=== PATIENT | female | born 1945 | race Hispanic/Latino ===

== ENCOUNTER 2025-07-22 06:56 | Day surgery (SDC) | payer OTHER ==
[2025-07-22] VITALS (10 sets, daily range): BP systolic 110–145; BP diastolic 54–80; PULSE 61–76; RESP 14–18; TEMP 97.4–97.9
[~2025-07-22] VITALS: Ht 167.6 cm; Wt 66.2 kg
[~2025-07-22 06:56] MED LIST: 0.9%NACL 1000ML 1,000 ML IV ONE
[2025-07-22] MEDS ORDERED: CHOL100046 PO (07:50)
[2025-07-22] MEDS ORDERED: CLOP75TA32 PO (07:50)
[2025-07-22] MEDS ORDERED: SIMV-46 PO (07:50)
[2025-07-22] MEDS ORDERED: METF-444 PO (07:50)
[2025-07-22] MEDS ORDERED: EZET10TA48 PO (07:50)
[2025-07-22] MEDS ORDERED: TAMS-55 PO (07:50)
[2025-07-22] MEDS ORDERED: PANT40TA54 PO (07:50)
--- NOTE | 2025-07-22 10:05 | NUR ---
PT TAKEN OUT VIA WHEELCHAIR IV WAS REMOVED PRIOR. INSTRUCTIONS GIVEN TO BOTH PT AND GRANDSON CURBSIDE GRANDSON DRIVING.
== END 2025-07-22 10:05 | disposition home or self-care (01) ==
LOC: DAH 06:56
PROVIDERS: ATTEND Internal Medicine Gastroenterology
DX: K59.04 Chronic idiopathic constipation (principal); D12.3 Benign neoplasm of transverse colon; K57.30 Diverticulosis of large intestine without perforation or abscess without bleeding; I10 Essential (primary) hypertension; E11.9 Type 2 diabetes mellitus without complications; E78.5 Hyperlipidemia, unspecified; Z95.1 Presence of aortocoronary bypass graft; I25.10 Atherosclerotic heart disease of native coronary artery without angina pectoris; Z95.5 Presence of coronary angioplasty implant and graft; Z79.84 Long term (current) use of oral hypoglycemic drugs; Z79.01 Long term (current) use of anticoagulants; Z79.899 Other long term (current) drug therapy
CPT/HCPCS: 45385; 82948 ×2; J7030; J2704; A4620; A4215; J3490